=== PATIENT | male | born 1985 | race Caucasian/White ===

== ENCOUNTER 2020-04-13 05:02 | Emergency (ER) | payer OTHER, SELFPAY ==
[2020-04-13 05:14] VITALS: BP 153/88; PULSE 58; RESP 24; TEMP 36.5; O2SAT 95; BMI 43.0
--- NOTE | 2020-04-13 05:17 | W.ED.ABDPA2 ---
Documented by User: Liz Borjas 04/13/20 05:57 HPI - Abdominal Pain General: Chief Complaint: Urogenital-Male Stated Complaint: R SIDE PAIN Time Seen by Provider: 04/13/20 05:16 History of Present Illness: HPI narrative: Magen is a very nice 34-year-old male who comes in complaining of sharp right-sided flank pain. This pain is similar to previous pain he has had in the past secondary to kidney stones. He is unaware of any blood in his urine as he is not been able to urinate but feels like he needs to go. He has had nausea and vomiting but denies any fevers or chills. Patient describes the pain as sharp and radiates from his back all the way down to his groin. Associated Symptoms: Reports nausea and vomiting; Denies chills, coffee ground emesis, constipation, GI cramping, diarrhea, dysuria, fever(s), heartburn, hematochezia, hematuria, hematemesis, melena and syncope Review of Systems Const: Denies: fever(s), chills, body aches, fatigue, malaise or diaphoresis Eyes: Denies: change in vision, blurry vision, blind spots or photophobia ENMT: Denies: throat pain, odynophagia, hoarseness, swelling of lips/tongue, ear or mastoid pain, ear discharge, change in hearing or nasal discharge Card: Denies: chest pain, palpitations, irregular heart rhythm, edema, lightheadedness, syncope, pre-syncope, dyspnea on exertion or orthopnea Resp: Denies: dyspnea, productive cough, non-productive cough, wheezing, hemoptysis or chest congestion GI: Reports: abdominal pain, nausea and vomiting; Denies: hematemesis, coffee ground emesis, heartburn, diarrhea, constipation, GI cramping, hematochezia or melena : Denies: flank pain, dysuria, urinary frequency, urinary urgency or hematuria Musc: Denies: neck pain, back pain, extremity pain, extremity swelling, joint pain, joint swelling, joint redness, joint warmth or joint stiffness Skin/Breast: Denies: rash, pruritus, erythema, skin tenderness or jaundice Neuro: Denies: headache(s), numbness in extremities, weakness in extremities, sensory changes, lack of coordination, difficulty walking, dizziness, vertigo, confusion or Slurred speech present Stevo/Lymph: Denies: easy bruising, easy bleeding, petechiae, purpura or enlarged lymph nodes All/Imm: Denies: urticaria, throat swelling, tongue swelling, facial swelling or acute wheezing PFSH ED PFSH: Medical History Kidney stones Social History Smoking and tobacco status: never smoked Physical Exam Const: COMMON NORMALS: no acute distress, patient oriented x3, no limitations, healthy appearing and well nourished GENERAL APPEARANCE: cooperative, well kempt and well developed HENMT: COMMON NORMALS: normocephalic, atraumatic, external ears normal, EAC's normal and Normal external nose present HEAD & SCALP: normal to inspection, normocephalic and atraumatic FACE & SINUS: normal facial exam and face symmetric NOSE: Normal external nose present and Normal nares present EXTERNAL EAR: Yes external ears normal EXTERNAL AUDITORY CANAL: EAC's normal MOUTH: Normal oral and palatal mucosa present, lip normal and tongue normal Eye: COMMON NORMALS: Equal, round and reactive pupils present and conjunctivae normal GENERAL EYE: appearance normal, both eyes and all related structures ALIGNMENT: Yes alignment normal PERIORBITAL: periorbital findings normal EYELID: eyelids normal CONJUNCTIVA: Yes conjunctivae normal SCLERA: sclerae normal PUPIL: Yes Equal, round and reactive pupils present Neck/C-Spine: COMMON NORMALS: full ROM, no lymphadenopathy, supple, no meningeal signs and no JVD GENERAL: Yes normal visual inspection and Yes trachea midline Chest: COMMONS NORMALS: normal inspection of the chest and normal palpation of entire chest wall Resp: COMMON NORMALS: normal respiratory effort, No retractions and No use of accessory muscles EFFORT & INSPECTION: Yes able to speak in complete sentences and Yes symmetric chest movement AUSCULTATION: no crackles, no rales, no rhonchi and no wheezes Cardio: COMMON NORMALS: no JVD, regular rate, regular rhythm, S1 normal heart sound present and S2 normal heart sound present RATE: regular rate RHYTHM: regular rhythm HEART SOUNDS: S1 normal heart sound present, S2 normal heart sound present, no click, no gallops, no murmurs, no rubs and abnormal split S2 GI: COMMON NORMALS: Soft to palpation and No hepatosplenomegaly present PALPATION: Yes Soft to palpation, No Tenderness to palpation present (GI), No Guarding due to palpation present (GI), No Rigid due to palpation, Yes No hepatosplenomegaly present, No Hernia present, No Palpable mass present and No Pulsatile mass present : COMMON NORMALS: Yes no CVA tenderness BLADDER/KIDNEY EXAM: Yes no CVA tenderness Back/Pelvis: COMMON NORMALS: no CVA tenderness, thoracic and lumbar spine normal to inspection, no thoracic nor lumbar tenderness and thoraco-lumbar ROM normal Extremity: COMMON NORMALS: normal to inspection, full ROM, capillary refill normal, no joint enlargement, no clubbing, cyanosis or edema and no calf tenderness Neuro: COMMON NORMALS: patient oriented x3, CN's II-XII intact bilaterally, moves all extremities, no focal motor deficits and no sensory deficits noted MENINGEAL SIGNS: Yes no meningeal signs SPEECH: speech normal Psych: COMMON NORMALS: mental status grossly normal, Normal thought process present, cooperative, normal affect, speech normal and activity/motor behavior normal APPEARANCE: Yes well kempt SPEECH: Yes normal speech THOUGHT PROCESS: Normal thought process present Skin: COMMON NORMALS: no rashes or lesions noted, turgor normal, no jaundice, no petechiae and no mottling GENERAL SKIN EXAM: no rashes or lesions noted and turgor normal Course Vital Signs: Vital signs: Vital Signs Temperature 97.7 F 04/13/20 05:14 Pulse Rate 51 L 04/13/20 06:18 Respiratory Rate 20 H 04/13/20 06:18 Blood Pressure 137/84 04/13/20 06:18 Pulse Oximetry 96 04/13/20 06:18 MDM - Abdominal Pain Lab Data: Labs: Lab Results 04/13/20 04/13/20 Range/Units 05:51 05:51 WBC 10.2 H (4.0-10.0) 10^3/ uL RBC 4.98 (4.1-5.3) 10^6/u L Hgb 14.5 (11.7-16.6) g/dL Hct 47.8 (42.0-52.0) % MCV 96.0 H (80-94) fL MCH 29.1 (28.0-34.0) pg MCHC 30.3 (30.0-36.0) g/dL RDW 12.4 (12.1-15.1) % Plt Count 233 (130-400) 10^3/c mm MPV 10.5 H (7.4-10.4) fL Neut % (Auto) 60.4 % Lymph % (Auto) 28.5 % [place] % (Auto) 9.9 % Eos % (Auto) 0.6 % Baso % (Auto) 0.4 % Neut # (Auto) 6.2 (1.8-7.7) 10^3/u L Lymph # (Auto) 2.9 (0.8-4.8) 10^3/u L [place] # (Auto) 1.0 H (0.2-0.9) 10^3/u L Eos # (Auto) 0.1 (0.0-0.8) 10^3/u L Baso # (Auto) 0.0 (0.0-0.1) 10^3/u L Nucleated RBC % (a uto) 0 % Nucleated RBCs # 0.0 /100WBC Sodium 142 (136-145) mmol/L Potassium 3.9 (3.5-5.1) mmol/L Chloride 109 H (98-107) mmol/L Carbon Dioxide 22 (22-29) mmol/L Anion Gap 14.9 (5-19) BUN 13 (6-20) mg/dL Creatinine 0.8 (0.7-1.2) mg/dL GFR Calculation 110.7 (90-130) mL/min Glucose 114 (65-115) mg/dL Calculated Osmolal ity 291 (285-295) mOsm/k g Calcium 9.1 (8.5-10.5) mg/dL Total Bilirubin 0.4 (0.15-1.2) mg/dL AST 22 (0-40) U/L ALT 38 (0-41) U/L Alkaline Phosphata se 58 (40-130) IU/L Total Protein 6.3 L (6.6-8.7) g/dL Albumin 4.3 (3.5-5.2) g/dL Globulin 2.0 (1.3-4.6) g/dL Lipase 16 (13-60) U/L Discharge Plan Discharge Patient Disposition: At Medical Facility Clinical Impression: Kidney stones Condition: Stable Prescriptions: New sulfamethoxazole-trimethoprim [Bactrim DS] 800-160 mg tablet 1 tab PO BID 10 Days Qty: 20 RF: 0 tamsulosin [Flomax] 0.4 mg capsule 0.4 mg PO DAILY Qty: 30 RF: 0 Discharge Orders: Discharge Order (Routine); Ordered 04/13/20 Ordered By: Lyle Campbell Patient Instructions: Kidney Stones (ED) Sign Out Sign Out Data: Patient Sign Out occurred on 04/13/20 at 06:34. Patient's care was discussed, and care was transferred from Liz Borjas to Lyle Campbell. Sign Out Comment: Case turned over to Dr. Bell at change of shift. Last updated by Liz Borjas at 04/13/20 05:57 Coding Level of Care Code ED [facility] Fwd Exam Comprehensive Documented by User: Lyle Campbell, 04/13/20 06:50 HPI - Abdominal Pain General: Chief Complaint: Urogenital-Male Stated Complaint: R SIDE PAIN Time Seen by Provider: 04/13/20 05:16 [facility] ED PFSH: Medical History Kidney stones Social History Smoking and tobacco status: never smoked Course Vital Signs: Vital signs: Vital Signs Temperature 97.7 F 04/13/20 05:14 Pulse Rate 51 L 04/13/20 06:18 Respiratory Rate 20 H 04/13/20 06:18 Blood Pressure 137/84 04/13/20 06:18 Pulse Oximetry 96 04/13/20 06:18 MDM - Abdominal Pain Lab Data: Labs: Lab Results 04/13/20 04/13/20 Range/Units 05:51 05:51 WBC 10.2 H (4.0-10.0) 10^3/ uL RBC 4.98 (4.1-5.3) 10^6/u L Hgb 14.5 (11.7-16.6) g/dL Hct 47.8 (42.0-52.0) % MCV 96.0 H (80-94) fL MCH 29.1 (28.0-34.0) pg MCHC 30.3 (30.0-36.0) g/dL RDW 12.4 (12.1-15.1) % Plt Count 233 (130-400) 10^3/c mm MPV 10.5 H (7.4-10.4) fL Neut % (Auto) 60.4 % Lymph % (Auto) 28.5 % [place] % (Auto) 9.9 % Eos % (Auto) 0.6 % Baso % (Auto) 0.4 % Neut # (Auto) 6.2 (1.8-7.7) 10^3/u L Lymph # (Auto) 2.9 (0.8-4.8) 10^3/u L [place] # (Auto) 1.0 H (0.2-0.9) 10^3/u L Eos # (Auto) 0.1 (0.0-0.8) 10^3/u L Baso # (Auto) 0.0 (0.0-0.1) 10^3/u L Nucleated RBC % (a uto) 0 % Nucleated RBCs # 0.0 /100WBC Sodium 142 (136-145) mmol/L Potassium 3.9 (3.5-5.1) mmol/L Chloride 109 H (98-107) mmol/L Carbon Dioxide 22 (22-29) mmol/L Anion Gap 14.9 (5-19) BUN 13 (6-20) mg/dL Creatinine 0.8 (0.7-1.2) mg/dL GFR Calculation 110.7 (90-130) mL/min Glucose 114 (65-115) mg/dL Calculated Osmolal ity 291 (285-295) mOsm/k g Calcium 9.1 (8.5-10.5) mg/dL Total Bilirubin 0.4 (0.15-1.2) mg/dL AST 22 (0-40) U/L ALT 38 (0-41) U/L Alkaline Phosphata se 58 (40-130) IU/L Total Protein 6.3 L (6.6-8.7) g/dL Albumin 4.3 (3.5-5.2) g/dL Globulin 2.0 (1.3-4.6) g/dL Lipase 16 (13-60) U/L Discharge Plan Discharge Patient Disposition: At Medical Facility Clinical Impression: Kidney stones Condition: Stable Prescriptions: New sulfamethoxazole-trimethoprim [Bactrim DS] 800-160 mg tablet 1 tab PO BID 10 Days Qty: 20 RF: 0 tamsulosin [Flomax] 0.4 mg capsule 0.4 mg PO DAILY Qty: 30 RF: 0 Discharge Orders: Discharge Order (Routine); Ordered 04/13/20 Ordered By: Lyle Capmbell Patient Instructions: Kidney Stones (ED) Sign Out Sign Out Data: Patient Sign Out occurred on 04/13/20 at 06:34. Patient's care was discussed, and care was transferred from Liz Borjas to Lyle Campbell. Sign Out Comment: Case turned over to Dr. Bell at change of shift. Last updated by Liz Borjas at 04/13/20 05:57 Coding Level of Care Code ED [facility] Fwd Exam Comprehensive
[2020-04-13] MEDS: ondansetron 2 mg/ML SDV 2 mL 4 MG IVP (05:30)
[2020-04-13 05:31] VITALS: RESP 20
[2020-04-13] MEDS: sodium chloride 0.9% 1,000 ML 999 ML IV (05:31)
[2020-04-13] MEDS: morphine 4 mg/mL SDV 1 mL IVP (05:31)
[2020-04-13 05:58] LABS: Basophils % 0.4 %; Eosinophils # 0.1 10^3/uL (0.0-0.8); Eosinophils % 0.6 %; Hematocrit 47.8 % (42.0-52.0); Hemoglobin 14.5 g/dL (11.7-16.6); Lymphocytes # 2.9 10^3/uL (0.8-4.8); Lymphocytes % 28.5 %; Mean Corpuscular HGB Conc 30.3 g/dL (30.0-36.0); Mean Corpuscular Hemoglobin 29.1 pg (28.0-34.0); Mean Platelet Volume 10.5 fL (7.4-10.4); Monocytes % 9.9 %; Neutrophils # 6.2 10^3/uL (1.8-7.7); Neutrophils % 60.4 %; Nucleated Red Blood Cells % 0 %; Platelet Count 233 10^3/cmm (130-400); Red Blood Count 4.98 10^6/uL (4.1-5.3); Red Cell Distribution Width 12.4 % (12.1-15.1); White Blood Count 10.2 10^3/uL (4.0-10.0)
[2020-04-13 06:08] VITALS: RESP 20; O2SAT 97
[2020-04-13] MEDS: HYDROmorphone 1 mg/mL INJ 1 mL IVP (06:08)
[2020-04-13 06:12] LABS: Alanine Aminotransferase 38 U/L (0-41); Albumin Level 4.3 g/dL (3.5-5.2); Alkaline Phosphatase 58 IU/L (40-130); Anion Gap 14.9 (5-19); Aspartate Amino Transferase 22 U/L (0-40); Blood Urea Nitrogen 13 mg/dL (6-20); Calcium 9.1 mg/dL (8.5-10.5); Carbon Dioxide 22 mmol/L (22-29); Chloride 109 mmol/L (98-107); Glomerular Filtration Rate 110.7 mL/min (90-130); Glucose 114 mg/dL (65-115); Lipase 16 U/L (13-60); Osmolality Calculated 291 mOsm/kg (285-295); Potassium 3.9 mmol/L (3.5-5.1); Sodium 142 mmol/L (136-145); Total Bilirubin 0.4 mg/dL (0.15-1.2); Total Protein 6.3 g/dL (6.6-8.7)
[2020-04-13 06:18] VITALS: BP 137/84; PULSE 51; RESP 20; O2SAT 96
[2020-04-13 07:01] VITALS: BP 136/79; PULSE 52; RESP 18; O2SAT 97
[2020-04-13 07:05] LABS: Bilirubin Urine Neg (NEGATIVE); Blood Urine 3+ (Negative); Glucose Urine UA Norm (Normal); Ketones Urine Negative (Negative); Leukocyte Esterase Urine Negative (Negative); Nitrate Urine Negative (Negative); Protein Urine Neg (Negative); Urine Appearance SL Hazy (CLEAR); Urine Color Yellow (Yellow); Urobilinogen Urine Norm (Negative); pH Urine 5 (5-7)
[2020-04-13 07:06] LABS: RBC Urine 15-25 /hpf (0-2); WBC Urine 0-4 /hpf (0-5)
[2020-04-13 07:09] LABS: Bacteria Urine TRACE; Mucus Urine 1+; Squamous Epithelial Cell Urine 0-4 (0-5)
[2020-04-13 07:10] LABS: Hyaline Casts Urine 0-4
[2020-04-13 07:22] LABS: Add Urine Culture? Yes
== END 2020-04-13 07:03 | disposition home or self-care (01) ==
PROVIDERS: Emergency Medicine; Emergency Provider Family Medicine
DX: N20.0 Calculus of kidney (principal); Z87.442 Personal history of urinary calculi
CPT/HCPCS: 12345; 36415; 80053; 81001; 83690; 85025; 87086; 96361; 96374; 96375; 99283; J1170; J2270; J2405; J7030

== ENCOUNTER 2020-04-27 14:20 | Outpatient (CLI) | payer OTHER, SELFPAY ==
--- NOTE | 2020-04-27 14:29 | XRR_ITS ---
PROCEDURE INFORMATION: Exam: XR Abdomen, 1 View Exam date and time: 04/27/2020 2:54 PM Age: 34 years old Clinical indication: Condition or disease; Kidney or ureter condition; Calculus (stone) in kidney; Additional info: Stone RT TECHNIQUE: Imaging protocol: XR of the abdomen. Views: Frontal supine view of the abdomen. 1 View. COMPARISON: No relevant prior studies available. FINDINGS: Gastrointestinal tract: The bowel gas pattern is otherwise nonspecific. Organs: Calcified stone is seen in the projection of the upper pole of the right kidney measuring 5.5 mm. Bones/joints: Unremarkable. XR/XR KUB [id number] IMPRESSION: Negative for acute GI abnormality. Calcified stone upper pole collecting system right kidney
== END 2020-04-27 14:21 | disposition home or self-care (01) ==
LOC: RAD 14:23
PROVIDERS: Visit Provider Urology
DX: N20.0 Calculus of kidney (principal)
CPT/HCPCS: 74018; 81001

== ENCOUNTER → 2020-06-08 08:47 | Outpatient (BNVA) | payer OTHER, SELFPAY | PROVIDERS: Visit Provider Urology | DX: N20.0 Calculus of kidney (principal) | CPT/HCPCS: 80048; 81003; 82131; 82140; 82340; 82436; 82507; 82570; 83735; 83935; 84100; 84300; 84550 ==

== ENCOUNTER 2020-07-26 13:31 | Outpatient (CLI) | payer OTHER, SELFPAY ==
--- NOTE | 2020-07-26 15:00 | XRR_ITS ---
PROCEDURE INFORMATION: Exam: XR Abdomen, 1 View Exam date and time: 07/26/2020 1:44 PM Age: 34 years old Clinical indication: Condition or disease; Kidney or ureter condition; Calculus (stone) in kidney; Additional info: Stones TECHNIQUE: Imaging protocol: XR of the abdomen. Views: Frontal supine view of the abdomen. 1 View. COMPARISON: CR XR KUB [id number] 04/27/2020 2:48 PM FINDINGS: Gastrointestinal tract: Normal. No bowel dilation. Organs: There is calcification in the mid right kidney which is unchanged. Bones/joints: Unremarkable. XR/XR KUB [id number] IMPRESSION: There are no acute concerning abnormalities.
== END 2020-07-26 13:32 | disposition home or self-care (01) ==
LOC: RAD 13:31
PROVIDERS: PCP Family Medicine; Visit Provider Urology
DX: N20.0 Calculus of kidney (principal)
CPT/HCPCS: 74018

== ENCOUNTER → 2021-01-12 08:42 | Outpatient (BNVA) | payer OTHER, SELFPAY | PROVIDERS: PCP Family Medicine; Visit Provider Urology | DX: N20.0 Calculus of kidney (principal) | CPT/HCPCS: 80048; 81003; 82131; 82140; 82340; 82436; 82507; 82570; 83735; 83935; 84100; 84300; 84550 ==

== ENCOUNTER 2021-02-22 07:29 | Outpatient (CLI) | payer OTHER, SELFPAY ==
--- NOTE | 2021-02-22 07:15 | XR_ITS ---
WS: [id number] KUB, AP view, 02/22/2021 Clinical Data: N20.0 - Calculus of kidney Comparison: KUB, 07/26/2020. Findings: No abnormal intraabdominal masses are seen. There is no dilatated small bowel or evidence of obstruct ion. There is a calcification overlying the midportion of the right kidney. There is a calcification to th e left of the L4 vertebral body which could represent a ureteral calcification. XR/XR KUB [id number] Impression: 1. Possible right renal calcification. 2. Questionable left mid ureteral calcification.
== END 2021-02-22 07:30 | disposition home or self-care (01) ==
PROVIDERS: PCP Family Medicine; Visit Provider Urology
DX: N20.0 Calculus of kidney (principal); N20.1 Calculus of ureter
CPT/HCPCS: 74018; 81003

== ENCOUNTER 2022-02-25 14:48 | Outpatient (CLI) | payer OTHER, SELFPAY ==
--- NOTE | 2022-02-25 15:00 | XR_ITS ---
WS: [id number] KUB, AP view, 02/25/2022 Clinical Data: Kidney Stones Comparison: KUB, 02/22/2021. Findings: No abnormal intraabdominal masses are seen. There is no dilatated small bowel or evidence of obstruct ion. There is a dense calcification overlying the midportion of the right kidney unchanged. The calcificat ion to the left of the L4 vertebral body is not seen. XR/XR KUB [id number] Impression: Probable right renal calcification.
== END 2022-02-25 14:49 | disposition home or self-care (01) ==
PROVIDERS: PCP Family Medicine; Visit Provider Urology
DX: N20.0 Calculus of kidney (principal)
CPT/HCPCS: 74018; 81003

== ENCOUNTER 2023-02-27 08:45 | Outpatient (CLI) | payer SELFPAY ==
--- NOTE | 2023-02-27 08:57 | XR_ITS ---
WS: [id number] Exam: XR KUB [id number] Date/Time of Exam: 02/27/2023 9:03 AM Reason For Exam: STONES No bowel obstruction or free air. There appear to be calcifications projected over both renal silhoue ttes that may represent renal calculi. No sign of organ enlargement. Bony structures are intact. XR/XR KUB [id number] IMPRESSION: 1. No acute abdominal process. 2. There are calcifications superimposing both renal silhouettes. These may rep resent renal calculi.
== END 2023-02-27 08:46 | disposition home or self-care (01) ==
LOC: RAD 08:48
PROVIDERS: PCP Family Medicine; Visit Provider Urology
DX: N20.0 Calculus of kidney (principal)
CPT/HCPCS: 74018; 81003